=== PATIENT | female | born 1955 | race Caucasian/White ===

== ENCOUNTER 2016-11-03 19:07 | Emergency (ER) | payer BC ==
[~2016-11-03] VITALS: Ht 162.6 cm; Wt 67.2 kg
[~2016-11-03 19:07] MED LIST: ARMOUR THYROID15 MG PO; CALCIUM CITRAT200 MG PO; FISH OIL300 MG PO; LEVOTHYROXINE25 MCG PO; MULTIVITAMIN1 EAC2 PO; OXTELLAR XR300 MG PO; VITAMIN D34000 UNIT PO; ZYRTEC10 M3 PO
[2016-11-03 20:32] LABS: HEMATOCRIT 37.9 % (36.0-46.0); MCH 31.2 PG (29.0-34.0); MCHC 32.7 G/DL (30.0-36.0); MCV 95.2 FL (83-99); MEAN PLAT.VOLUME 8.6 uM^3 (9.5-12.4); PLATELET COUNT 279 K/uL (156-360); RBC DIS.WIDTH-CV 14.2 % (11.8-14.6); RBC DIS.WIDTH-SD 49.5 % (39-53); RED BLOOD COUNT 3.98 M/uL (3.80-5.20); WHITE BLOOD COUNT 6.6 K/uL (4.1-10.2)
[2016-11-03] MEDS ORDERED: COLACE100 MG PO (20:37)
[2016-11-03] MEDS ORDERED: SENOKOT,SENN1 TABLET PO (20:37)
[2016-11-03] MEDS ORDERED: OXYCODONE HCL5 MG PO (20:38)
[2016-11-03] MEDS ORDERED: CALCIUM VIT D PO (20:38)
[2016-11-03 20:40] LABS: CHLORIDE 104 mEq/L (99-109); POTASSIUM 3.8 mEq/L (3.7-5.4); SODIUM 139 mEq/L (136-147)
[2016-11-03 20:41] LABS: GLUCOSE 95 mg/dL (70-99)
[2016-11-03 20:43] LABS: ANION GAP 8 MEQ/L (2-14)
[2016-11-03 20:45] LABS: GFR ESTIMATE (CALCULATED) > 59 mL/min/
[2016-11-03 20:46] LABS: UREA NITROGEN (BUN) 12 mg/dL (9-23)
[2016-11-03 22:45] VITALS: BP 137/83
== END 2016-11-03 22:46 | disposition home or self-care (01) ==
LOC: EME 19:07
PROVIDERS: Emergency Medicine
DX: M16.11 Unilateral primary osteoarthritis, right hip (principal); Z98.890 Other specified postprocedural states; J45.909 Unspecified asthma, uncomplicated; E78.5 Hyperlipidemia, unspecified; Z96.643 Presence of artificial hip joint, bilateral; E03.9 Hypothyroidism, unspecified; Z87.891 Personal history of nicotine dependence
CPT/HCPCS: 73502; 73552; 80048; 85027; 99281; 99284

== ENCOUNTER → 2017-08-11 | Outpatient (CLI) | payer BC ==
[~2017-08-11] MED LIST changes: +CALCIUM VIT D PO; +COLACE100 MG PO; +OXYCODONE HCL5 MG PO; +SENOKOT,SENN1 TABLET PO
== END | disposition home or self-care (01) ==
LOC: NUC 09:52
DX: M19.032 Primary osteoarthritis, left wrist (principal); M19.031 Primary osteoarthritis, right wrist; M17.0 Bilateral primary osteoarthritis of knee; M47.892 Other spondylosis, cervical region; Z96.641 Presence of right artificial hip joint; R93.7 Abnormal findings on diagnostic imaging of other parts of musculoskeletal system
CPT/HCPCS: 78315; A9503

== ENCOUNTER → 2017-09-01 | Outpatient (CLI) | payer BC | END | disposition home or self-care (01) | LOC: NUC 08-20 06:30 | DX: M25.551 Pain in right hip (principal); Z96.643 Presence of artificial hip joint, bilateral | CPT/HCPCS: 78102; 78805; 78999; A9541; A9570 ==